=== PATIENT | male | born 1955 | race African-American/Black ===

== ENCOUNTER 2025-05-26 06:34 | Inpatient (IN) | payer OTHER ==
[2025-05-26] VITALS (26 sets, daily range): BP systolic 43–119; BP diastolic 21–50; PULSE 90–141; RESP 15–20; TEMP 96.8–98.6; O2SAT 68–100
[~2025-05-26] VITALS: Ht 175.3 cm; Wt 70.5 kg
[2025-05-26] MEDS: SODIUM CHLORIDE 0.9% 1,000 ML IV ONE (06:45)
[2025-05-26] MEDS: NOREPINEPHRINE 8 MG/250ML KIT 250 ML IV ONE ×2 (06:47→19:22)
[2025-05-26] MEDS: NOREPINEPHRINE 8 MG/250ML KIT 250 ML IV SCH (06:50)
--- NOTE | 2025-05-26 06:51 | ED.PDOC ---
History of Present Illness HPI Comments 70-year-old male BIBAriel with prior medical history of diabetes, prostate cancer in the chief complaint of ALOC. EMS report that the family called them due from with the patient being altered this morning and on scene the patient sugar of 465, and a the blood pressure of 46/20. Stay EMS the his last known well was last night. Upon arrival to the ER the patient was given in 18 to the right wrist with the fluids and had emesis on his T-shirt. . No other associated symptoms, modifiers, recent injuries or sick contacts present at this time. Time Seen by MD: 06:40 Reviewed Notes: Nurses Notes, Medications, Allergies Information Source: Emergency Med Personnel Mode of Arrival: EMS Severity: Moderate Timing: Hours Duration: Since onset, Hours Prehospital treatment: None Past Medical History PAST MEDICAL HISTORY: Cancer (Prostate), DM Past Medical History (Other): Prostate cancer Surgical History: Denies all surgeries Family History Family History: Reviewed,noncontributory to illness, Unknown Social History Smoker: Unknown Alcohol: Unknown Drugs: Unknown Lives In: Home Unable to Obtain due to: Altered Mental Status All Other Systems: Reviewed and Negative Physical Exam General Appearance: No Apparent Distress, Normal HEENT: Normal ENT Inspection, Pharynx Normal, TMs Normal Neck: Full Range of Motion, Non-Tender, Normal, Normal Inspection Respiratory: Chest Non-Tender, Lungs Clear, No Accessory Muscle Use, No Respiratory Distress, Normal Breath Sounds Cardiovascular: No Edema, No JVD, No Murmur, No Gallop, Normal Peripheral Puls es, Regular Rate/Rhythm Breast Exam: Deferred Gastrointestinal: No Organomegaly, Non Tender, No Pulsatile Mass, Normal Bowel Sounds, Soft Genitalia: Deferred Pelvic: Deferred Rectal: Deferred Extremities: No calf tenderness, Normal capillary refill, Normal inspection, Normal range of motion, Non-tender, No pedal edema Musculoskeletal : Apperance: Normal Neurologic: Alert, senior label specialist II-XII nml as Tested, No Motor Deficits, Normal Affect, Normal Mood, No Sensory Deficits Cerebellar Function: Normal Reflexes: Normal Skin: Dry, Normal Color, Warm Lymphatic: No Adenopathy Was a procedure done? Was a procedure done?: No EKG EKG : Pulse Rate (adult): 129 [place]: Normal Cardiac Rhythm: NSR Block: None Hypertrophy: None ST: Normal X-Ray, Labs, Meds, VS Vital Signs Date Time Temp Pulse Resp B/P (MAP) Pulse Ox O2 Delivery O2 Flow Rate FiO2 05/26/25 06:36 129 Time of 1ST Reevaluation: 07:10 Reevaluation 1ST: Unchanged Patient Education/Counseling: Other (Patient is altered) Family Education/Counseling: No Family Present SEPSIS Sepsis Screen Physician Orders B-Type Natriuretic Peptide (05/26/25 06:37) Complete Blood Count (05/26/25 06:37) Comprehensive Metabolic Panel (05/26/25 06:37) Lactic Acid W/ Reflex Order (05/26/25 06:37) Lipase (05/26/25 06:37) Troponin-I Hs (05/26/25 06:37) Urinalysis (05/26/25 06:37) Blood Culture (05/26/25 06:37) Insert Maddox Catheter QSHIFT (05/26/25 06:37) Urine Bacterial Culture (05/26/25 06:37) Electrocardigram (05/26/25 06:37) Troponin-I Hs (05/26/25 07:37) Troponin-I Hs (05/26/25 09:37) Electrocardigram (05/26/25 07:37) Electrocardigram (05/26/25 09:37) Norepinephrine 8 Mg/250ml Kit (Levophed) (05/26/25 06:45) Sodium Chloride 0.9% (05/26/25 06:45) Chest Portable (05/26/25 06:45) Vital Signs Date Time Temp Pulse Resp B/P (MAP) Pulse Ox O2 Delivery O2 Flow Rate FiO2 05/26/25 06:36 129 Critical Care Note Critical Care Time?: No Stability Stability form required: No I personally scribed for HIEU CASTANON MD ([email or web address]) on 05/26/25 at 06:51. Electronically submitted by Srinivasa David ([email or web address]). HIEU CASTANON MD May 26, 2025 06:51
[2025-05-26] MEDS: ROCURONIUM 10MG/ML 10ML VIAL IV ONE ×2 (06:53→07:09)
[2025-05-26] MEDS: ETOMIDATE (2MG/ML) 20ML VIAL IV ONE ×2 (07:09→07:59)
[2025-05-26 08:04] LABS: Hematocrit 29.5 % (41.0-53.0); Hemoglobin 9.1 g/dL (13.5-17.5)
--- NOTE | 2025-05-26 08:08 | DVH ---
EXAM: XY CHEST PORTABLE HISTORY: S/P INTUBATION COMPARISON: None TECHNIQUE: Portable semi-erect AP view of the chest was performed. FINDINGS: Endotracheal tube is identified with its tip 4.2 cm above the xavier. There is central interstitial p rominence. No pneumothorax, consolidative infiltrates, or pulmonary edema. The heart is not enlarged. No fractures are identified about the bony thorax. There is thoracic spondylosis and dextroscoliosi s. IMPRESSION: 1. Mechanical ventilation with Endotracheal tube in good position. 2. Central interstitial prominence may be due to CHF and/or reactive airways disease.
[2025-05-26 08:13] LABS: Alkaline Phosphatase 79 U/L (46-116); Anion Gap 19 (5-15); BUN/Creatinine Ratio 8.1 (10.0-20.0); Bilirubin, Total 0.8 mg/dL (0.2-1.0); Blood Urea Nitrogen 19 mg/dL (9-23); Mean Corpuscular Hemoglobin 30.6 pg (28.0-32.0); Mean Corpuscular Volume 99.2 fL (80.0-100.0); Sodium 141 mmol/L (136-145)
[2025-05-26 08:23] LABS: Lactic Acid w/Reflex 9.3 mmol/L (0.4-2.0)
[2025-05-26 08:24] LABS: Alanine Aminotransferase 40 U/L (7-40); Albumin 2.5 g/dL (3.2-4.8); Calcium 8.1 mg/dL (8.7-10.4); Carbon Dioxide 11 mmol/L (20-31); Chloride 111 mmol/L (98-107); Glucose 403 mg/dL (74-106); Potassium 3.2 mmol/L (3.5-5.1); Total Protein 4.7 g/dL (5.7-8.2)
[2025-05-26 08:44] LABS: Total Cells Counted 100.0 (100)
[2025-05-26 08:45] LABS: Anisocytosis Slight
--- NOTE | 2025-05-26 08:51 | DVH ---
EXAM: XY CHEST XRAY 1 VIEW Indication: IJ PLACEMENT Technique: Single frontal view of the chest was obtained Comparison: XY CHEST PORTABLE on DOS: 05/26/25 FINDINGS: Lines and Tubes: Endotracheal tube projects 3.2 cm above level the xavier. Right internal jugular ce ntral venous catheter tip projects over the cavoatrial junction. Lungs: No focal consolidation. Pleura: No effusion. No pneumothorax. Cardiomediastinal contours: Unremarkable Bones: No acute osseous abnormality. IMPRESSION: Endotracheal tube projects 3.2 cm above level the xavier. Right internal jugular central venous cath eter tip projects over the cavoatrial junction.
[2025-05-26 08:53] LABS: Lipase 24 U/L (12-53)
[2025-05-26 09:24] LABS: Base Excess -19.4 mmol/L (-2.0-3.0)
[2025-05-26 09:28] LABS: Urine Protein, UAD 1+ (Negative); Urine WBC Clumps PRESENT /hpf (None Seen)
[2025-05-26] MEDS: PHENYLEPHRINE IV 250 ML IV SCH (11:15)
[2025-05-26] MEDS: PHENYLEPHRINE IV 250 ML IV ONE (11:21)
[2025-05-26] MEDS: CEFEPIME 2GM/50ML NS 50 ML IV ONE (12:17)
[2025-05-26] MEDS: VANCOMYCIN 1.5GM/250ML 250 ML IV ONE (13:12)
[2025-05-26] MEDS ORDERED: DOPamine 1600MCG/ML D5W 250 ML IV ONE (13:45)
[2025-05-26] MEDS: DOBUTamine 1000MCG/ML 250 ML IV ONE ×3 (13:51→17:55)
[2025-05-26] MEDS: EPINEPHrine HCL 250 ML IV ONE (14:13)
[2025-05-26] MEDS: VASOPRESSIN 20 UNITS in SODIUM CHL 0.9% 99 ML IV SCH (14:28)
[2025-05-26] MEDS: VASOPRESSIN 20 UNIT/ML ONE (14:29)
[2025-05-26] MEDS: CALCIUM CHLOR(10%) 100MG/ML 10ML SYRINGE IV ONE ×2 (15:15→15:34)
[2025-05-26] MEDS: CALCIUM GLUC 1,000mg/50ml-NS 50 ML IV SCH (15:15)
[2025-05-26] MEDS: SODIUM BICARB 8.4% 50Meq/50ml SYR Vial IV ONE ×4 (15:15→22:23)
[2025-05-26] MEDS: EPINEPHrine HCL INJECTION 8 MG in D5W 5% 242 ML IV SCH (15:45)
[2025-05-26] MEDS: NOREPINEPHRINE BITARTRATE 16 MG in SODIUM CHL 0.9% 234 ML IV SCH (15:45)
[2025-05-26] MEDS: DOBUTamine HCL 500 MG in D5W 5% 210 ML IV SCH (15:45)
[2025-05-26] MEDS: PHENYLEPHRINE INJ 40 MG in SODIUM CHL 0.9% 246 ML IV SCH (15:45)
[2025-05-26] MEDS ORDERED: NITROGLYCERIN 0.4 MG SL TAB SL PRN (17:30)
[2025-05-26] MEDS ORDERED: ONDANSETRON HCL 4 MG/2 ML VIAL IV PRN (17:30)
[2025-05-26] MEDS ORDERED: MORPHINE SULFATE INJ 2 MG/ml SYRG IV PRN (17:30)
--- NOTE | 2025-05-26 17:36 | DVH ---
Procedure: CT HEAD WITHOUT CONTRAST Study Date and Requested Time: 05/26/2025 04:53 PM History: ALOC Comparison: None Dose: CTDI: 61.87 mGy DLP: 1.71 mGycm Technique: Multiplanar images obtained through the brain without intravenous contrast. Findings: Moderate frontoparietal predominant brain Atrophy. Mild chronic small-vessel ischemic changes. No hemorrhages, masses, mass effect, midline shift, herniation or cytotoxic edema following a large v ascular territory. No intra-axial or extra-axial fluid collections. No evidence of hydrocephalus. The basal cisterns are patent. The pituitary gland, sella and parasellar regions are unremarkable. The cerebellar tonsils are in nor mal position. The cerebellum is unremarkable. The orbits and globes are unremarkable. Mild mucoperiosteal thickening of the ethmoid and maxillary s inuses. The remainder of the paranasal sinuses and mastoids are clear. paranasal sinuses and mastoid s are clear. There are no worrisome calvarial lesions. Impression: No evidence of acute intracranial abnormality.
[2025-05-26] MEDS ORDERED: VANCOMYCIN PER PHARMACY 0 MG IV SCH (17:45)
[2025-05-26] MEDS ORDERED: OMEP1CAP70 PO (17:49)
[2025-05-26] MEDS ORDERED: ATOR40TA52 PO (17:49)
[2025-05-26] MEDS ORDERED: GLIP5TAB21 PO (17:49)
[2025-05-26] MEDS: PANTOPRAZOLE 40 MG/10 ML VIAL INJ IV ONE (18:00)
--- NOTE | 2025-05-26 18:06 | DVHHP2 ---
History of Present Illness Reason for Visit: ALOC History of Present Illness Brandin Purvis is a 70-year-old male with past medical history of prostate cancer, diabetes, failure to thrive, and GERD, who was brought to the hospital by EMS for ALOC. Patient was found at 0500 by family in bed breathing but not responding. Last know well time was last night 05/25/2025 at 2100. When EMS arrived patient was severely hypotensive. Patient was brought to the hospital and intubated shortly after arrival. Daughter states the patient began declining last year after his diagnosis of prostate cancer. She states he stopped eating and gave up. He was able to have surgery to have his prostate removed. While in the hospital he also had a peg tube placed due to him not eating. He was diagnosed with failure to thrive and discharged home on hospice. Once home he did began to improve and was eating. Daughter states that since being home he did begin to improve and was eating, she thought he was doing better. Patient remained bedbound. A hospice nurse came to their house yesterday to place a Juarez catheter. Daughter states the first nurse was not able to place it, so the charge nurse came. The juarez catheter was placed but no there was no urine. In the ER the Juarez catheter was replaced, and hematuria came out. GI: GERD Heme/Onc: Cancer (prostate) Endocrine: Diabetes Past Surgical History: Other (Prostate) Smoke: No ALCOHOL: none Drugs: None Lives: with Family Domestic Violence: Neg Review of Systems Review of Systems Unable to obtain Allergies: Coded Allergies: Penicillins (Verified Allergy, Unknown, 05/26/25) Medications Current Medications Medications Dose Ordered Sig/Blue Route Start Time Stop Time Status Last Admin Dose Admin Vasopressin 20 units/Sodium Chloride 100 ml @ 9 mls/hr [id number] IV 05/26/25 14:00 05/26/25 14:28 12 MLS/HR Dobutamine HCl/ Dextrose 500 mg/ Dextrose 250 ml @ 10.575 mls/ hr [id number] IV 05/26/25 15:45 05/26/25 15:45 84.6 MLS/HR Phenylephrine HCl 40 mg/Sodium Chloride 250 ml @ 15 mls/hr [id number] IV 05/26/25 15:45 05/26/25 15:45 67.5 MLS/HR Norepinephrine Bitartrate 16 mg/ Sodium Chloride 250 ml @ 1.875 mls/ hr Q24H IV 05/26/25 15:45 05/26/25 15:45 28.125 MLS/HR Epinephrine HCl 8 mg/Dextrose 250 ml @ 3.75 mls/hr Q24H IV 05/26/25 15:45 05/26/25 15:45 18.75 MLS/HR Ondansetron HCl 4 mg Q4HP PRN IV 05/26/25 17:30 UNV Enoxaparin Sodium 40 mg DAILY SC 05/27/25 10:00 UNV Nitroglycerin 0.4 mg Q5MINP PRN SL 05/26/25 17:30 UNV Morphine Sulfate 2 mg Q30M PRN IV 05/26/25 17:30 UNV Sodium Bicarbonate 150 ml/Dextrose 1,150 ml @ 100 mls/hr [id number] IV 05/26/25 17:45 UNV Exam Vital Signs Vital Signs Date Time Temp Pulse Resp B/P (MAP) Pulse Ox O2 Delivery O2 Flow Rate FiO2 05/26/25 15:45 68/33 05/26/25 15:36 129 16 99 35 05/26/25 15:30 95.4 95.4 05/26/25 07:45 Mechanical Ventilator+ 10 General Appearance: Other (intubated, not responsive, no sedation) HEENT: Other (mucous membr dry) Respiratory: Other (diminished) Cardiovascular: Other (ST) Abdominal: Soft, Other (Peg tube) Extremities: No clubbing, No edema Neuro: Other (not responsive) Labs/Xrays Labs Test 05/26/25 11:53 05/26/25 10:27 05/26/25 08:36 05/26/25 08:23 Range/Units POC Glucose 367 H 70-106 mg/dl Lactic Acid Level 7.5 *H 0.4-2.0 mmol/L Troponin I High Sensitivity 1093 *H </=54 ng/L Blood Gas Specimen Type Arterial Blood Gas Sample Site Right radial Blood Gas Patient Temperature 37.0 Arterial Blood Date Drawn [id number] Arterial Blood pH 7.065 *L 7.350-7.450 Arterial Blood Partial Pressure CO2 34.4 L 35.0-48.0 mmHg Arterial Blood Partial Pressure O2 466.9 *H 83.0-108.0 mmHg Arterial Blood HCO3 9.6 L 21.0-28.0 mmol/L Arterial Blood Oxygen Saturation 99.8 H 94.0-98.0 % Arterial Blood Base Excess -19.4 L -2.0-3.0 mmol/L Arterial Blood Oxyhemoglobin 98.7 H 94.0-98.0 % Arterial Blood Carboxyhemoglobin 0.3 L 0.5-1.5 % Arterial Blood Methemoglobin 0.8 0.0-1.5 % Claudio Test Modified Blood Gas Total Hemoglobin 10.30 L 13.5-17.5 g/dL Blood Gas Set Respiration Rate 16.0 Blood Gas Modality Vent - ac FiO2 % 100.0 Blood Gas Tidal Volume 500.0 Blood Gas PEEP or CPAP 5.0 Blood Gas Critical Value Read Back yes Blood Gas Notified Whom felice keating md Blood Gas Notified Time [id number] Blood Gas Notified By manager water fab baum Urine Color Red H Yellow Urine Clarity Cloudy H Clear Urine pH 5.5 5.0-9.0 Urine Specific [place] 1.011 1.001-1.035 Urine Protein 1+ H Negative Urine Ketones Negative Negative Urine Blood 3+ H Negative /uL Urine Nitrite Negative Negative Urine Bilirubin Negative Negative Urine Urobilinogen Normal Negative mg/dL Urine Leukocyte Esterase 2+ Negative /uL Urine RBC 1274 0 - 3 /hpf Urine WBC Clumps Present None Seen /hpf Urine Microscopic WBC 670 H 0-3 /HPF Urine Squamous Epithelial Cells None seen <5 /hpf Urine Bacteria Mod H None Seen /hpf Urine Glucose 2+ H Normal mg/dL Test 05/26/25 07:36 Range/Units White Blood Count 4.8 4.4-10.8 10^3/uL Red Blood Count 2.98 L 4.5-5.90 10^6/uL Hemoglobin 9.1 L 13.5-17.5 g/dL Hematocrit 29.5 L 41.0-53.0 % Mean Corpuscular Volume 99.2 80.0-100.0 fL Mean Corpuscular Hemoglobin 30.6 28.0-32.0 pg Mean Corpuscular Hemoglobin Concent 30.9 L 32.0-36.0 g/dL Red Cell Distribution Width 17.5 H 11.8-14.3 % Platelet Count 128 L 140-450 10^3/uL Mean Platelet Volume 9.6 6.9-10.8 fL Neutrophils (%) (Auto) 37.0-80.0 % Lymphocytes (%) (Auto) 10.0-50.0 % Monocytes (%) (Auto) 0.0-12.0 % Basophils (%) (Auto) 0.0-2.0 % Neutrophils # (Auto) 1.6-8.6 10 ^3/uL Lymphocytes # (Auto) 0.4-5.4 10 ^3/uL Monocytes # (Auto) 0-1.3 10 ^3/uL Differential Total Cells Counted 100.0 100 Neutrophils % (Manual) 74 37.0-80.0 Band Neutrophils % (Manual) 14 Lymphocytes % (Manual) 9 L 10.0-50.0 Monocytes % (Manual) 3 0-12 Eosinophils % (Manual) 0 0-7 Basophils % (Manual) 0 0.0-2.0 Metamyelocytes % (manual) 0 Myelocytes % (Manual) 0 Promyelocytes % (Manual) 0 Blast Cells % (Manual) 0 Reactive Lymphocytes 0 Platelet Estimate Decreased Hypochromasia (manual) Slight Poikilocytosis (manual) Slight Anisocytosis (manual) Slight [place] Cells Few Sodium Level 141 136-145 mmol/L Potassium Level 3.2 L 3.5-5.1 mmol/L Chloride Level 111 H 98-107 mmol/L Carbon Dioxide Level 11 L 20-31 mmol/L Anion Gap 19 H 5-15 Blood Urea Nitrogen 19 9-23 mg/dL Creatinine 2.35 H 0.700-1.30 mg/dL Glomerular Filtration Rate Calc 29 >90 mL/min BUN/Creatinine Ratio 8.1 L 10.0-20.0 Serum Glucose 403 *H 74-106 mg/dL Calcium Level 8.1 L 8.7-10.4 mg/dL Total Bilirubin 0.8 0.2-1.0 mg/dL Aspartate Amino Transferase (AST) 111 H 13-40 U/L Alanine Aminotransferase (ALT) 40 7-40 U/L Alkaline Phosphatase 79 46-116 U/L B-Type Natriuretic Peptide 170.89 0-100 pg/mL Total Protein 4.7 L 5.7-8.2 g/dL Albumin 2.5 L 3.2-4.8 g/dL Lipase 24 12-53 U/L Microbiology Date/Time Source Procedure Growth Status 05/26/25 07:50 Sputum Gram Stain - Final Resulted 05/26/25 07:50 Sputum Respiratory Culture Pending Resulted EXAM: XY CHEST PORTABLE FINDINGS: Endotracheal tube is identified with its tip 4.2 cm above the xavier. There is central interstitial prominence. No pneumothorax, consolidative infiltrates, or pulmonary edema. The heart is not enlarged. No fractures are identified about the bony thorax. There is thoracic spondylosis and dextroscoliosis. IMPRESSION: 1. Mechanical ventilation with Endotracheal tube in good position. 2. Central interstitial prominence may be due to CHF and/or reactive airways disease. EXAM: XY CHEST XRAY 1 VIEW FINDINGS: Lines and Tubes: Endotracheal tube projects 3.2 cm above level the xavier. Right internal jugular central venous catheter tip projects over the cavoatrial junction. Lungs: No focal consolidation. Pleura: No effusion. No pneumothorax. Cardiomediastinal contours: Unremarkable Bones: No acute osseous abnormality. IMPRESSION: Endotracheal tube projects 3.2 cm above level the xavier. Right internal jugular central venous catheter tip projects over the cavoatrial junction. Procedure: CT HEAD WITHOUT CONTRAST Findings: Moderate frontoparietal predominant brain Atrophy. Mild chronic small-vessel ischemic changes. No hemorrhages, masses, mass effect, midline shift, herniation or cytotoxic edema following a large vascular territory. No intra-axial or extra-axial fluid collections. No evidence of hydrocephalus. The basal cisterns are patent. The pituitary gland, sella and parasellar regions are unremarkable. The cerebellar tonsils are in normal position. The cerebellum is unremarkable. The orbits and globes are unremarkable. Mild mucoperiosteal thickening of the ethmoid and maxillary sinuses. The remainder of the paranasal sinuses and mastoids are clear. paranasal sinuses and mastoids are clear. There are no worrisome calvarial lesions. Impression: No evidence of acute intracranial abnormality. SEPSIS Sepsis Screen Date sepsis recognized/suspect: May 26, 2025 Time Sepsis recognized/suspect: 0808 Recent Procedure: No On Antibiotic Therapy: No Respiratory Rate >20: Yes Heart Rate >90: Yes Temp<36 C (96.8 F) or >38.3 C: No SBP <90 or MAP <65 mmHG: Yes New Acute Mental Status Change: Yes Is the patient on CPAP, BIPAP,: Yes Physician Orders Head Without Contrast (05/26/25 12:07) Sodium Chl 0.9% (So... W/Vasopressin (05/26/25 14:00) Communication Order (05/26/25 13:58) D5w 5% (Dextrose 5%) W/Dobutamine Hcl (05/26/25 15:45) Sodium Chl 0.9% (Ns... W/Phenylephrine I (05/26/25 15:45) Sodium Chl 0.9% (Ns... W/Norepinephrine (05/26/25 15:45) D5w 5% (Dextrose 5%) W/Epinephrine Hcl I (05/26/25 15:45) Communication Order (05/26/25 15:35) Admit (05/26/25 17:30) Code Status (05/26/25 17:30) Ondansetron Hcl (Zofran) (05/26/25 17:30) Enoxaparin Sodium (Lovenox) (05/27/25 10:00) Complete Blood Count (05/27/25 04:00) Comprehensive Metabolic Panel (05/27/25 04:00) Npo (Nothing By Mouth) Diet (05/26/25 Dinner) Echo 2d Mode Cardiac Dop (05/26/25 17:30) Condition: Unstable (05/26/25 17:30) Nitroglycerin Sublingual (Ntrostat Subli (05/26/25 17:30) Morphine Sulfate Injection (05/26/25 17:30) Stat Ekg For Chest Pain (05/26/25 17:30) Notify Md Of Changes From Base (05/26/25 17:30) Wader Boot Top Assembler For 24 Hours (05/26/25 17:30) Emergency Dysrhythmia Protocol (05/26/25 17:30) Rhythm Strips Once Every Shift (05/26/25 17:30) Oxygen By Nasal Cannula (05/26/25 17:30) D5w 5% (Dextrose 5%) W/Sodium Bicarb 50m (05/26/25 17:45) Sodium Bicarb 50meq/50ml Vial (05/26/25 17:45) Troponin-I Hs (05/26/25 17:35) Lactic Acid W/ Reflex Order (05/26/25 17:35) * Cardiology Consult (05/26/25 17:35) Troponin-I Hs (05/26/25 18:35) Troponin-I Hs (05/26/25 20:35) Vital Signs Date Time Temp Pulse Resp B/P (MAP) Pulse Ox O2 Delivery O2 Flow Rate FiO2 05/26/25 15:45 68/33 05/26/25 15:37 73/33 05/26/25 15:37 73/33 05/26/25 15:36 129 16 73/33 (46) 99 35 05/26/25 15:30 95.4 120 16 71/35 (47) 99 95.4 05/26/25 15:28 73/33 05/26/25 15:15 96.1 137 16 68/33 (45) 99 96.1 05/26/25 15:13 68/05/26/25 15:13 68/33 05/26/25 15:00 96.1 129 16 69/31 (44) 99 96.1 05/26/25 14:45 96.4 129 16 60/31 (41) 99 96.4 05/26/25 14:37 60/28 05/26/25 14:37 60/28 05/26/25 14:30 96.8 121 16 57/26 (36) 99 96.8 05/26/25 14:28 82/47 05/26/25 14:15 97.3 118 16 57/28 (38) 99 97.3 05/26/25 14:13 50/26 05/26/25 14:13 69/38 05/26/25 14:00 97.3 125 16 82/47 (59) 99 97.3 05/26/25 13:53 124 16 82/47 (59) 100 35 05/26/25 13:45 97.3 121 16 82/40 (54) 99 97.3 05/26/25 13:44 67/38 05/26/25 13:37 77/44 05/26/25 13:37 77/44 05/26/25 13:30 97.3 123 16 77/44 (55) 99 97.3 05/26/25 13:15 97.3 124 16 85/43 (57) 99 97.3 05/26/25 13:00 97.2 124 16 82/41 (55) 99 97.2 05/26/25 12:57 78/45 05/26/25 12:55 78/45 05/26/25 12:45 97.2 124 16 78/45 (56) 99 97.2 05/26/25 12:30 128 16 81/48 (59) 100 05/26/25 12:21 96/47 05/26/25 12:17 96/47 05/26/25 12:15 129 16 96/47 (63) 100 05/26/25 12:00 131 05/26/25 12:00 130 16 89/46 (60) 100 05/26/25 11:45 130 16 86/46 (59) 100 35 05/26/25 11:45 97.2 131 16 87/42 (57) 100 97.2 05/26/25 11:30 131 16 86/47 (60) 100 05/26/25 11:21 78/48 05/26/25 11:15 132 16 78/48 (58) 100 05/26/25 11:15 96/47 05/26/25 11:15 78/48 05/26/25 11:00 86/43 05/26/25 11:00 131 16 86/43 (57) 100 05/26/25 10:49 129 05/26/25 10:45 97.0 130 16 80/40 (53) 100 97.0 05/26/25 10:30 131 16 81/44 (56) 100 05/26/25 10:15 131 16 91/42 (58) 100 05/26/25 10:00 133 16 89/45 (60) 100 05/26/25 10:00 89/45 05/26/25 09:45 97.0 133 16 89/43 (58) 100 97.0 05/26/25 09:45 89/43 Laboratory Tests Test 05/26/25 07:36 05/26/25 10:27 Lactic Acid Level 9.3 mmol/L (0.4-2.0) *H 7.5 mmol/L (0.4-2.0) *H White Blood Count 4.8 10^3/uL (4.4-10.8) Medications Medications Dose Ordered Sig/Blue Route Start Time Stop Time Status Last Admin Dose Admin Calcium Gluconate/ Sodium Chloride 50 ml @ 100 mls/hr Q30M IV 05/26/25 15:15 05/26/25 16:14 DC 05/26/25 15:45 100 MLS/HR Cefepime HCl 50 ml @ 12.5 mls/hr ONCE ONCE IV 05/26/25 10:45 05/26/25 14:44 DC 05/26/25 12:17 12.5 MLS/HR Dobutamine HCl/ Dextrose 250 ml @ 21.15 mls/ hr [id number] ONCE IV 05/26/25 14:00 05/26/25 16:23 DC 05/26/25 14:13 21.15 MLS/HR Dobutamine HCl/ Dextrose 500 mg/ Dextrose 250 ml @ 10.575 mls/ hr [id number] IV 05/26/25 15:45 05/26/25 15:45 84.6 MLS/HR Epinephrine HCl 250 ml @ 7.5 mls/hr Q24H ONCE IV 05/26/25 14:15 05/26/25 16:23 DC 05/26/25 14:13 7.5 MLS/HR Epinephrine HCl 8 mg/Dextrose 250 ml @ 3.75 mls/hr Q24H IV 05/26/25 15:45 05/26/25 15:45 18.75 MLS/HR Etomidate 20 mg ONCE ONCE IV 05/26/25 08:00 05/26/25 08:01 DC 05/26/25 07:09 20 MG Norepinephrine Bitartrate 250 ml @ 3.75 mls/hr Q24H IV 05/26/25 06:45 05/26/25 16:23 DC 05/26/25 06:50 56.25 MLS/HR Norepinephrine Bitartrate 16 mg/ Sodium Chloride 250 ml @ 1.875 mls/ hr Q24H IV 05/26/25 15:45 05/26/25 15:45 28.125 MLS/HR Phenylephrine HCl 40 mg/Sodium Chloride 250 ml @ 15 mls/hr [id number] IV 05/26/25 15:45 05/26/25 15:45 67.5 MLS/HR Rocuronium [place] 100 mg ONCE ONCE IV 05/26/25 08:00 05/26/25 08:01 DC 05/26/25 07:09 100 MG Sodium Bicarbonate 100 ml ONCE ONCE IV 05/26/25 15:15 05/26/25 16:04 DC 05/26/25 15:15 100 ML Sodium Chloride 1,000 ml @ 1,000 mls/hr Q1H ONCE IV 05/26/25 06:45 05/26/25 07:44 DC 05/26/25 06:45 1,000 MLS/HR Vancomycin HCl 250 ml @ 250 mls/hr ONCE ONCE IV 05/26/25 12:30 05/26/25 13:29 DC 05/26/25 13:12 250 MLS/HR Vasopressin 20 units/Sodium Chloride 100 ml @ 9 mls/hr Q11H7M IV 05/26/25 14:00 05/26/25 14:28 12 MLS/HR Assessment/Plan Assessment/Plan Assessment: Sepsis, Lactic acidosis, Hematuria, UTI, Failure to thrive, Plan: Admit to ICU, Cardiology consult, ECHO, Mechanical ventilation, Vasopressors as needed, IV antibiotics, IV hydration, Sodium bicarb drip, Blood cultures, Urine culture, Chest X-ray in am, ABG in am, Daily IV Protonix, Lovenox, Plan discussed with: Patient My Orders Orders - JACKSON YOUNG [facility] AIDE Procedure Category Date Status Time Head Without Contrast CT 05/26/25 Resulted 12:07 Admit ADMIT 05/26/25 Transmitted 17:30 Code Status CODE 05/26/25 Transmitted 17:30 Ondansetron Hcl PHA 05/26/25 Logged (Zofran) 17:30 Enoxaparin Sodium PHA 05/27/25 Logged (Lovenox) 10:00 Complete Blood Count LAB 05/27/25 Verified 04:00 Comprehensive LAB 05/27/25 Verified Metabolic Panel 04:00 Npo (Nothing By DIET 05/26/25 Transmitted Mouth) Diet Dinner Echo 2d Mode Cardiac US 05/26/25 Logged DOP 17:30 Condition: Unstable [id number] 05/26/25 In Process 17:30 Nitroglycerin PHA 05/26/25 Logged Sublingual (Ntrostat 17:30 Morphine Sulfate PHA 05/26/25 Logged Injection 17:30 Stat Ekg For Chest [facility] 05/26/25 In Process Pain 17:30 Notify Of Changes [facility] 05/26/25 In Process From Base 17:30 Wader Boot Top Assembler For [facility] 05/26/25 In Process 24 Hours 17:30 Emergency Dysrhythmia [facility] 05/26/25 In Process Protocol 17:30 Rhythm Strips Once [facility] 05/26/25 In Process Every Shift 17:30 Oxygen By Nasal RT 05/26/25 Transmitted Cannula 17:30 D5w 5% (Dextrose 5%) PHA 05/26/25 Logged W/Sodium Bicarb 50m 17:45 Sodium Bicarb PHA 05/26/25 Logged 50meq/50ml Vial 17:45 Troponin-I Hs LAB 05/26/25 Logged 17:35 Lactic Acid W/ Reflex LAB 05/26/25 Logged Order 17:35 * Cardiology Consult CONS 05/26/25 Transmitted 17:35 Troponin-I Hs LAB 05/26/25 Logged 18:35 Troponin-I Hs LAB 05/26/25 Logged 20:35 Date of Service: May 26, 2025 Billing Provider: JACKSON YOUNG Common Visit Codes: [id number] INP/OBS CARE (HIGH) JACKSON YOUNG May 26, 2025 18:06
[2025-05-26 18:12] LABS: Base Excess -21.5 mmol/L (-2.0-3.0)
[2025-05-26 18:20] LABS: Lactic Acid w/Reflex 10.4 mmol/L (0.4-2.0)
[2025-05-26] MEDS ORDERED: CEFEPIME 1GM/50ML 50 ML IV ONE (19:00)
[2025-05-26] MEDS: SODIUM BICARB 50mEq/50ml Vial 150 ML in D5W 5% 1,000 ML IV SCH (20:54)
[2025-05-26] MEDS: DOPamine 1600MCG/ML D5W 250 ML IV ONE (22:12)
[2025-05-26] MEDS: DOPamine 1600MCG/ML D5W 250 ML IV SCH (22:12)
[2025-05-26 22:25] LABS: Base Excess -25.5 mmol/L (-2.0-3.0)
[2025-05-26] MEDS ORDERED: DEXTROSE (50%) 50ML SYRG IV PRN (22:30)
--- NOTE | 2025-05-26 23:19 | DVHINCON2 ---
Date of service: May 26, 2025 Referring Physician Marco Reason for Consultation Elevated troponin History of Present Illness This is a 70-year-old male with a past medical history of diabetes, prostate cancer brought in by ambulance due to ALOC. EMS reports that the patient's family called them due from with the patient being altered this morning and on scene the patient sugar of 465, and a the blood pressure of 46/20. EMS states that the his last known well was last night. Patient was intubated for airway protection hotly after arrival to the ED. HGB 9.1, HCT 29.5, TROP 1093, 826. Chest x-ray shows central interstitial prominence may be due to CHF and/or reactive airways disease. Patient was admitted to the hospital. I am asked to consult on this patient. Allergies: Coded Allergies: Penicillins (Verified Allergy, Unknown, 05/26/25) Home Meds Reported Medications Omeprazole (Omeprazole Dr) 20 Mg Cap, 1 CAP PO DAILY 05/26/25 Atorvastatin Calcium (ATORVASTATIN CALCIUM) 40 Mg Tab, 1 TAB PO HS 05/26/25 Glipizide (Glipizide) 5 Mg Tab, 1 TAB PO DAILY 05/26/25 Current Medications Current Medications Medications (Trade) Dose Ordered Sig/Blue Route PRN Reason Start Time Stop Time Status Last Admin Norepinephrine Bitartrate 250 ml @ 3.75 mls/hr Q24H IV 05/26/25 06:45 05/26/25 16:23 DC 05/26/25 06:50 Phenylephrine HCl 250 ml @ 30 mls/hr Q8H20M IV 05/26/25 11:15 05/26/25 16:23 DC Vasopressin 20 units/Sodium Chloride 100 ml @ 9 mls/hr Q11H7M IV 05/26/25 14:00 05/26/25 14:28 Calcium Gluconate/ Sodium Chloride 50 ml @ 100 mls/hr Q30M IV 05/26/25 15:15 05/26/25 16:14 DC 05/26/25 15:45 Dobutamine HCl/ Dextrose 500 mg/ Dextrose 250 ml @ 10.575 mls/ hr [id number] IV 05/26/25 15:45 05/26/25 15:45 Phenylephrine HCl 40 mg/Sodium Chloride 250 ml @ 15 mls/hr [id number] IV 05/26/25 15:45 9/5/25 15:45 Norepinephrine Bitartrate 16 mg/ Sodium Chloride 250 ml @ 1.875 mls/ hr Q24H IV 05/26/25 15:45 05/26/25 15:45 Epinephrine HCl 8 mg/Dextrose 250 ml @ 3.75 mls/hr Q24H IV 05/26/25 15:45 05/26/25 15:45 Ondansetron HCl (Zofran) 4 mg Q4HP PRN IV NAUSEA / VOMITING 05/26/25 17:30 Enoxaparin Sodium (Lovenox) 40 mg DAILY SC 05/27/25 10:00 Nitroglycerin (Ntrostat Sublingual) 0.4 mg Q5MINP PRN SL FOR CHEST PAIN 05/26/25 17:30 Morphine Sulfate 2 mg Q30M PRN IV FOR CHEST PAIN 05/26/25 17:30 Sodium Bicarbonate 150 ml/Dextrose 1,150 ml @ 100 mls/hr [id number] IV 05/26/25 17:45 Vancomycin HCl 0 ml @ 0 mls/hr UD IV 05/26/25 17:45 UNV Cefepime HCl 50 ml @ 12.5 mls/hr Q12HR IV 05/26/25 22:00 Pantoprazole Sodium (Protonix) 40 mg DAILY IV 05/27/25 10:00 Review of Systems Unable to Obtain due to: Intubated on ventilator. Vital Signs Vital Signs Date Time Temp Pulse Resp B/P (MAP) Pulse Ox O2 Delivery O2 Flow Rate FiO2 05/26/25 18:30 119 16 71/28 (42) 100 35 05/26/25 18:30 95.2 95.2 05/26/25 07:45 Mechanical Ventilator+ 10 Physical Exam GENERAL: Ill appearing, intubated on ventilator. EYES: PERRL, EOMI. Anicteric. HENT: Moist mucous membranes. LUNGS: Decreased breath sounds. CARDIOVASCULAR: Regular rate and rhythm. ABDOMEN: Soft, nontender and nondistended. EXTREMITIES: No edema. SKIN: Warm, dry. Labs/Diagnostic Data Labs Test 05/26/25 17:56 05/26/25 17:45 05/26/25 11:53 05/26/25 08:23 Range/Units Blood Gas Specimen Type Arterial Blood Gas Sample Site Right radial Blood Gas Patient Temperature 37.0 Arterial Blood Date Drawn [id number] Arterial Blood pH 7.003 *L 7.350-7.450 Arterial Blood Partial Pressure CO2 34.8 L 35.0-48.0 mmHg Arterial Blood Partial Pressure O2 92.7 83.0-108.0 mmHg Arterial Blood HCO3 8.4 L 21.0-28.0 mmol/L Arterial Blood Oxygen Saturation 94.1 94.0-98.0 % Arterial Blood Base Excess -21.5 L -2.0-3.0 mmol/L Arterial Blood Oxyhemoglobin 93.3 L 94.0-98.0 % Arterial Blood Carboxyhemoglobin 0.3 L 0.5-1.5 % Arterial Blood Methemoglobin 0.6 0.0-1.5 % Claudio Test Yes Blood Gas Total Hemoglobin 9.30 L 13.5-17.5 g/dL Blood Gas Set Respiration Rate 16.0 Blood Gas Modality Vent - ac FiO2 % 35.0 Blood Gas Tidal Volume 500.0 Blood Gas PEEP or CPAP 5.0 Specimen Drawn By Chips Screen Tender yasmin simons Blood Gas Critical Value Read Back Yes Blood Gas Notified Whom alexey Bustillos Blood Gas Notified Time [id number] Blood Gas Notified By Ch[employer] Screen Tender yasmin simons Lactic Acid Level 10.4 *H 0.4-2.0 mmol/L Troponin I High Sensitivity 826 *H </=54 ng/L POC Glucose 367 H 70-106 mg/dl Urine Color Red H Yellow Urine Clarity Cloudy H Clear Urine pH 5.5 5.0-9.0 Urine Specific [place] 1.011 1.001-1.035 Urine Protein 1+ H Negative Urine Ketones Negative Negative Urine Blood 3+ H Negative /uL Urine Nitrite Negative Negative Urine Bilirubin Negative Negative Urine Urobilinogen Normal Negative mg/dL Urine Leukocyte Esterase 2+ Negative /uL Urine RBC 1274 0 - 3 /hpf Urine WBC Clumps Present None Seen /hpf Urine Microscopic WBC 670 H 0-3 /HPF Urine Squamous Epithelial Cells None seen <5 /hpf Urine Bacteria Mod H None Seen /hpf Urine Glucose 2+ H Normal mg/dL Test 05/26/25 07:36 Range/Units White Blood Count 4.8 4.4-10.8 10^3/uL Red Blood Count 2.98 L 4.5-5.90 10^6/uL Hemoglobin 9.1 L 13.5-17.5 g/dL Hematocrit 29.5 L 41.0-53.0 % Mean Corpuscular Volume 99.2 80.0-100.0 fL Mean Corpuscular Hemoglobin 30.6 28.0-32.0 pg Mean Corpuscular Hemoglobin Concent 30.9 L 32.0-36.0 g/dL Red Cell Distribution Width 17.5 H 11.8-14.3 % Platelet Count 128 L 140-450 10^3/uL Mean Platelet Volume 9.6 6.9-10.8 fL Neutrophils (%) (Auto) 37.0-80.0 % Lymphocytes (%) (Auto) 10.0-50.0 % Monocytes (%) (Auto) 0.0-12.0 % Basophils (%) (Auto) 0.0-2.0 % Neutrophils # (Auto) 1.6-8.6 10 ^3/uL Lymphocytes # (Auto) 0.4-5.4 10 ^3/uL Monocytes # (Auto) 0-1.3 10 ^3/uL Differential Total Cells Counted 100.0 100 Neutrophils % (Manual) 74 37.0-80.0 Band Neutrophils % (Manual) 14 Lymphocytes % (Manual) 9 L 10.0-50.0 Monocytes % (Manual) 3 0-12 Eosinophils % (Manual) 0 0-7 Basophils % (Manual) 0 0.0-2.0 Metamyelocytes % (manual) 0 Myelocytes % (Manual) 0 Promyelocytes % (Manual) 0 Blast Cells % (Manual) 0 Reactive Lymphocytes 0 Platelet Estimate Decreased Hypochromasia (manual) Slight Poikilocytosis (manual) Slight Anisocytosis (manual) Slight [place]ney Cells Few Sodium Level 141 136-145 mmol/L Potassium Level 3.2 L 3.5-5.1 mmol/L Chloride Level 111 H 98-107 mmol/L Carbon Dioxide Level 11 L 20-31 mmol/L Anion Gap 19 H 5-15 Blood Urea Nitrogen 19 9-23 mg/dL Creatinine 2.35 H 0.700-1.30 mg/dL Glomerular Filtration Rate Calc 29 >90 mL/min BUN/Creatinine Ratio 8.1 L 10.0-20.0 Serum Glucose 403 *H 74-106 mg/dL Hemoglobin A1c 8.1 H <5.7 % A1C Calcium Level 8.1 L 8.7-10.4 mg/dL Total Bilirubin 0.8 0.2-1.0 mg/dL Aspartate Amino Transferase (AST) 111 H 13-40 U/L Alanine Aminotransferase (ALT) 40 7-40 U/L Alkaline Phosphatase 79 46-116 U/L B-Type Natriuretic Peptide 170.89 0-100 pg/mL Total Protein 4.7 L 5.7-8.2 g/dL Albumin 2.5 L 3.2-4.8 g/dL Lipase 24 12-53 U/L Microbiology Date/Time Source Procedure Growth Status 05/26/25 07:50 Sputum Gram Stain - Final Resulted 05/26/25 07:50 Sputum Respiratory Culture Pending Resulted Assessment Sepsis. Lactic acidosis. Hematuria. UTI. Failure to thrive. Plan/Recommendation I agree with your ongoing assessment and care of plan. Echocardiogram. DVT and GI prophylactics. Dopamine drip. IV antibiotics as ordered. Morphine for pain management. Nitro SL. Vasopressors for hemodynamic support. Additional plan as per the hospital course. Critical care time of 90 minutes provided to include time spent evaluation of patient at bedside, when appropriate patient/family education for diagnosis, treatment plan, review of pertinent medical information and discussion of care with specialty providers and PCP. Mechanical ventilator parameters, treatment and adjustments have personally been reviewed by me and treatment plan by vending machine servicer has also been reviewed. Plan discussed with: Other JEREMIAH CRAIG MD May 26, 2025 18:53
[2025-05-26] MEDS: InsuLIN REG 1unit/0.01ml Soln (100units/ml) SC SCH (23:51)
[2025-05-26] MEDS: ACCU-CHEK COMFORT CURVE STRIP VI SCH (23:52)
[2025-05-27] VITALS (25 sets, daily range): BP systolic 42–63; BP diastolic 19–34; PULSE 59–123; RESP 16; TEMP 97.7; O2SAT 86–100
[2025-05-27] MEDS: SODIUM CHLORIDE 0.9% 1,000 ML IV ONE (00:04)
[2025-05-27] MEDS: CEFEPIME 1GM/50ML 50 ML IV SCH (01:10)
[2025-05-27 01:33] LABS: Base Excess -24.9 mmol/L (-2.0-3.0)
[2025-05-27] MEDS: SODIUM BICARB 8.4% 50Meq/50ml SYR Vial IV ONE ×2 (02:11)
[2025-05-27 03:56] LABS: Hematocrit 29.3 % (41.0-53.0); Hemoglobin 8.5 g/dL (13.5-17.5); Mean Corpuscular Hemoglobin 30.4 pg (28.0-32.0); Mean Corpuscular Volume 104.4 fL (80.0-100.0)
[2025-05-27 04:16] LABS: Base Excess -23.2 mmol/L (-2.0-3.0)
[2025-05-27] MEDS ORDERED: SODIUM BICARB 8.4% 50Meq/50ml SYR Vial IV ONE (04:45)
[2025-05-27] MEDS: PHENYLEPHRINE HCL 10 MG/ML VL ONE (04:46)
[2025-05-27] MEDS: PHENYLEPHRINE IV 250 ML IV ONE (04:46)
[2025-05-27 04:59] LABS: Alkaline Phosphatase 105 U/L (46-116); Anion Gap 30.00001 (5-15); BUN/Creatinine Ratio 7.1 (10.0-20.0); Bilirubin, Total 1.1 mg/dL (0.2-1.0); Blood Urea Nitrogen 22 mg/dL (9-23); Calcium 8.8 mg/dL (8.7-10.4); Chloride 107 mmol/L (98-107); Potassium 4.5 mmol/L (3.5-5.1)
[2025-05-27 05:25] LABS: INR 1.97 (0.9-1.15); Prothrombin Time 19.5 sec (9.3-11.8)
[2025-05-27 05:38] LABS: Alanine Aminotransferase 597 U/L (7-40); Albumin 2.2 g/dL (3.2-4.8); Sodium 147 mmol/L (136-145); Total Protein 4.2 g/dL (5.7-8.2)
[2025-05-27 05:40] LABS: Carbon Dioxide < 10 mmol/L (20-31); Partial Thromboplastin Time 73.5 SEC (24.5-34.5)
[2025-05-27 05:41] LABS: Glucose 453 mg/dL (74-106)
--- NOTE | 2025-05-27 06:13 | RESUS ---
NGUYEN WETZEL ASSESSSMENT History of Events History of Events: Pt BIBA to ER on 05/26/25 after being found unresponsive by family. Pt was intubated shortly after arrival. Pt admitted on 05/26/25 for Sepsis. Pt maxed on all drips prior to code. Primary RN observed pt's heart rate decrease and then pt went pulseless with no palpable pulse. NGUYEN WETZEL called and CPR initiated. Initial Information Date: May 27, 2025 Time: 05:04 Location of Arrest: ER Arrest Witnessed: Yes CPR started initial time: 05:04 CPR started by whom: Hospital Staff Pre-Hospital Care: Pre-Code Care (inpatient) Type of arrest: Cardiac, Respiratory, Adult, Witnessed Spontaneous Respirations: No Pulse Present: No Monitoring: ECG, Pulse Oximetry, Telemetry Crash Cart Opened and Supplies: Yes Airway Ventilation Breathing at Onset: Assisted Oxygen Delivery Method: Mechanical Ventilator Artificial Ventilation: Bag/Endo tube Intubation Size: 8.0 cuffed Intubated orally: Yes Intubated Nasaly: No Tube secured at: 24 (cm @ lip) Comments: Pt intubated prior to code Circulation Circulation #1: Time: 05:04 Pulse Rate (adult): 0 Blood Pressure Systolic: 0 Blood Pressure Diastolic: 0 Temperature (Fahrenheit): 98.9 (F; rectal) Circulation #2: Time: 05:07 Pulse Rate (adult): 0 Blood Pressure Systolic: 0 Blood Pressure Diastolic: 0 Circulation Comment: PEA Circulation #3: Time: 05:09 Pulse Rate (adult): 0 Blood Pressure Systolic: 0 Blood Pressure Diastolic: 0 Circulation Comment: PEA Circulation #4: Time: 05:11 Pulse Rate (adult): 0 Blood Pressure Systolic: 0 Blood Pressure Diastolic: 0 Circulation Comment: PEA Circulation #5: Time: 05:13 Pulse Rate (adult): 0 Blood Pressure Systolic: 0 Blood Pressure Diastolic: 0 Circulation Comment: PEA Circulation #6: Time: 05:15 Pulse Rate (adult): 0 Blood Pressure Systolic: 0 Blood Pressure Diastolic: 0 Circulation Comment: PEA Circulation #7: Time: 05:17 Pulse Rate (adult): 0 Blood Pressure Systolic: 0 Blood Pressure Diastolic: 0 Circulation Comment: PEA Circulation #8: Time: 05:19 Pulse Rate (adult): 0 Blood Pressure Systolic: 0 Blood Pressure Diastolic: 0 Circulation #9: Time: 05:21 Pulse Rate (adult): 0 Blood Pressure Systolic: 0 Blood Pressure Diastolic: 0 Circulation Comment: PEA Circulation #10: Time: 05:22 Pulse Rate (adult): 0 Blood Pressure Systolic: 0 Blood Pressure Diastolic: 0 Circulation Comment: PEA; TOD Procedure - IV Procedure - IV #1: IV Side: Right IV Location: Wrist IV Catheter Type: Saline Lock IV Gauge: 18 IV Line Care: Saline Flush Comment Placed prior to code Procedure - IV #2: IV Side: Left IV Location: Wrist IV Catheter Type: Saline Lock IV Gauge: 20 IV Line Care: Saline Flush Comment Placed prior to code Medications & Response Medications and Responses #1: Medication Time: 05:06 ADULT Medications Given ADULT: Epinephrine 1 mg, Sodium Bacarbinate 50 meq Route of Administration: IV Heart Rate: 0 EKG Rhythm: PEA Blood Pressure Systolic: 0 Blood Pressure Diastolic: 0 Respiratory Rate: 0 Medications and Responses #2: Medication Time: 05:08 ADULT Medications Given ADULT: Sodium Bacarbinate 50 meq Route of Administration: IV Heart Rate: 0 EKG Rhythm: PEA Blood Pressure Systolic: 0 Blood Pressure Diastolic: 0 Respiratory Rate: 0 Medications and Responses #3: Medication Time: 05:09 ADULT Medications Given ADULT: Epinephrine 1 mg Route of Administration: IV Heart Rate: 0 EKG Rhythm: PEA Blood Pressure Systolic: 0 Blood Pressure Diastolic: 0 Respiratory Rate: 0 Medications and Responses #4: Medication Time: 05:13 ADULT Medications Given ADULT: Epinephrine 1 mg, Sodium Bacarbinate 50 meq Route of Administration: IV Heart Rate: 0 EKG Rhythm: PEA Blood Pressure Systolic: 0 Blood Pressure Diastolic: 0 Respiratory Rate: 0 O2 Sat by Pulse Oximetry: 0 Medications and Responses #5: Medication Time: 05:17 ADULT Medications Given ADULT: Epinephrine 1 mg Route of Administration: IV Heart Rate: 0 EKG Rhythm: PEA Blood Pressure Systolic: 0 Blood Pressure Diastolic: 0 Respiratory Rate: 0 Procedure - Central Venous Cat Central venous catheter site: Rt IJ Comment: Placed prior to code Procedure - Maddox Catheter Urinary Catheter Type/Location: Uretheral (Maddox) Urine Appearance: Hematuria, Clots Urine Color: Dark Red Maddox Catheter Inserted by Who: Placed prior to arrival to ER Nurses Notes [place] Coma Scale Eye Opening: None (1) [place] Coma Scale Verbal: None (1) Suzanne Coma Scale Motor: None (1) [place] Total: 3 Pupil Reaction: Sluggish Bedside Blood Glucose: 293 Nurses Notes - Comment: Daughter remained present throughout code; hospitalist KYLIE Wasserman and resident Parminder s/w her throughout code Time Code Ended Time Code Ended: 05:22 Post Arrest Status: Outcome of code: Unsuccessful Patient pronounced by: KYLIE Wasserman Time patient pronounced: 05:22 Family notified: Yes Code Team Present: KYLIE Wasserman - hospitalist; Parminder - Resident; Hannah Alvarez, RN - ICU charge; Raquel Badillo, RN - [employer] Work Supervisor; Pedro Seth RN - ER Charge; Pinky Norman, RN - primary RN; Maggy Rice, RT; Veronique Malagon, RT; Carleen Rice, RN; Betzaida Waldron, RN; Erin James, ERT; Tomas Calix, ERT; Rishabh S, ERT Raquel Dillon May 27, 2025 06:13
[2025-05-27 06:55] LABS: Nucleated Red Blood Cells % 1.0 %; Total Cells Counted 100.0 (100)
[2025-05-27] MEDS ORDERED: INSULIN LANTUS (GLARGINE) 1 /0.01ml (100units/ml) SC SCH (07:00)
[2025-05-27] MEDS ORDERED: PANTOPRAZOLE 40 MG/10 ML VIAL INJ IV SCH (10:00)
[2025-05-27] MEDS ORDERED: ENOXAPARIN SOD 40 MG/0.4 ML SYRINGE SC SCH (10:00)
[2025-05-27] MEDS ORDERED: EPINEPHrine HCL 1 MG/10 ML SYRG IV ONE (13:48)
== END 2025-05-27 05:22 | DRG 871 ==
LOC: EDBD 06:34 → ER 06:34 → OVERFLOW 17:30
PROVIDERS: ADMIT Nurse Practitioner Family; ATTEND Nurse Practitioner Family
PROC: 0BH17EZ Insertion of Endotracheal Airway into Trachea, Via Natural or Artificial Opening (ICD-10-PCS; principal; 2025-05-26)
PROC: 5A1935Z Respiratory Ventilation, Less than 24 Consecutive Hours (ICD-10-PCS; 2025-05-26)
PROC: 5A12012 Performance of Cardiac Output, Single, Manual (ICD-10-PCS; 2025-05-27)
PROC: 02HV33Z Insertion of Infusion Device into Superior Vena Cava, Percutaneous Approach (ICD-10-PCS; 2025-05-27)
DX: A41.9 Sepsis, unspecified organism (principal); I21.A1 Myocardial infarction type 2; R65.21 Severe sepsis with septic shock; N39.0 Urinary tract infection, site not specified; E87.20 Acidosis, unspecified; R57.0 Cardiogenic shock; R62.7 Adult failure to thrive; E11.9 Type 2 diabetes mellitus without complications; K21.9 Gastro-esophageal reflux disease without esophagitis; R31.9 Hematuria, unspecified; Z74.01 Bed confinement status; Z85.46 Personal history of malignant neoplasm of prostate; Z88.0 Allergy status to penicillin; Z68.23 Body mass index [BMI] 23.0-23.9, adult; Z93.1 Gastrostomy status
CPT/HCPCS: 36415; 36600; 70450; 71045; 80053; 80202; 81001; 82805; 82962; 83036; 83605; 83690; 83880; 84484; 85007; 85027; 85610; 85730; 87040; 87070; 87077; 87086; 87088; 87186; 87205; 94002; 94003; 96360; G0378; J0169; J0692; J1815; J2470; J7060